=== PATIENT | male | born 2000 | race Caucasian/White ===

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

== ENCOUNTER → 2022-01-01 | Outpatient (CLI) | payer MEDICAID, SELFPAY ==
[2022-01-01 17:26] LABS: Vitamin D,25 Hydroxy 10.5 ng/mL
[2022-01-01 17:33] LABS: AST(SGOT) 20 U/L (15-37); Alanine Aminotransfer ALT/SGPT 30 U/L (16-61); Albumin, Serum 3.9 g/dL (3.2-5.0); Alkaline Phosphatase 117 U/L (45-117); Anion Gap 5 (5-15); BUN 10 mg/dL (7-18); BUN/Creat Ratio 9.6 RATIO (10-20); Calcium,Total 9.4 mg/dL (8.5-10.1); Chloride 98 mmol/L (98-107); Cholesterol 139 mg/dL (200); Creatinine, Serum 1.04 mg/dL (0.70-1.30); EST Glomerular Filtration Rate 97 mL/min (>60); Est Glom Filt Rate - Afr Amer 118 mL/min (>60); Globulin 3.8 g/dL (2.2-4.2); Glucose 389 mg/dL (74-106); High Density Lipoprotein 42 mg/dL; Potassium 3.9 mmol/L (3.5-5.1); Protein, Total 7.7 g/dL (6.4-8.2); Sodium Level 133 mmol/L (136-145); Thyroid Stim Hormone (TSH) 0.87 uIU/mL (0.358-3.74); Triglycerides 64 mg/dL; Very Low Density Lipoprotein 13 mg/dL (5-40)
== END | disposition home or self-care (01) ==
LOC: BIMLAB 14:58
PROVIDERS: PCP Pediatrics; Referring Provider Nurse Practitioner Family; Visit Provider Nurse Practitioner Family
DX: E10.65 Type 1 diabetes mellitus with hyperglycemia (principal)
CPT/HCPCS: 36415; 80053; 80061; 82306; 84443

== ENCOUNTER → 2022-07-19 | Outpatient (CLI) | payer MEDICAID, SELFPAY ==
[2022-07-19 13:05] LABS: Vitamin D,25 Hydroxy 22.8 ng/mL
[2022-07-19 13:34] LABS: Microalbumin,Random Urine 85.5 mg/L (NO RANGE EST.); Microalbumin:Creatinine Ratio 21.1 mg/g CRE (<30 mg/g CRE)
[2022-07-19 13:37] LABS: AST(SGOT) 15 U/L (15-37); Alanine Aminotransfer ALT/SGPT 17 U/L (16-61); Albumin, Serum 3.8 g/dL (3.2-5.0); Alkaline Phosphatase 82 U/L (45-117); Anion Gap 6 (5-15); BUN 10 mg/dL (7-18); BUN/Creat Ratio 11.3 RATIO (10-20); Calcium,Total 9.7 mg/dL (8.5-10.1); Chloride 103 mmol/L (98-107); Creatinine, Serum 0.88 mg/dL (0.70-1.30); EST Glomerular Filtration Rate 117 mL/min (>60); Est Glom Filt Rate - Afr Amer 142 mL/min (>60); Globulin 3.9 g/dL (2.2-4.2); Glucose 121 mg/dL (74-106); Potassium 3.8 mmol/L (3.5-5.1); Protein, Total 7.7 g/dL (6.4-8.2); Sodium Level 139 mmol/L (136-145)
== END | disposition home or self-care (01) ==
LOC: LAB 11:46
PROVIDERS: PCP Pediatrics; Visit Provider Nurse Practitioner Family
DX: E10.9 Type 1 diabetes mellitus without complications (principal); E55.9 Vitamin D deficiency, unspecified
CPT/HCPCS: 36415; 80053; 82043; 82306; 82570

== ENCOUNTER 2022-11-07 14:30 | Emergency (ER) | payer MEDICAID, SELFPAY ==
[2022-11-07 14:30] VITALS: BP 126/80; PULSE 91; RESP 18; TEMP 36.1; O2SAT 100; BMI 46.5
--- NOTE | 2022-11-07 14:42 | EDS_ITS ---
HPI HPI - GI History of Present Illness Chief Complaint: Nausea/Vomiting Informant: patient Abdominal Pain/Flank Pain Onset: Today Context: Sudden Onset Timing: Continuous Quality: Aching Location: Diffuse Worsened by: Nothing Relieved by: Nothing Nausea/Vomiting/Emesis GI Symptom: Positive for Nausea and Vomiting Onset: Today Quality: Positive for Nonbilious; Negative for Blood streaks, Coffee ground or Hematemesis Diarrhea/Melena/Hematochezia GI Symptom: Negative for Diarrhea, Melena or Hematochezia Associated Symptoms Associated Symptoms: Negative for Dysuria, Frequency or Hematuria Narrative Narrative: Patient presents with nausea, vomiting, and abdominal pain that began today. Patient states she has been feeling achy and not well over the last couple days. Patient states she has been around family members with [facility] Patient is a diabetic and checked his blood sugar this morning. Patient states it was normal this morning. Patient states he is unable to take any food down but is able to keep some liquids down. Patient denies any diarrhea, melena, or hematochezia. Patient denies any hematemesis or coffee- ground emesis. Patient denies any dysuria, frequency, or hematuria. [facility] Medical History ADHD Diabetes Home Medications methylphenidate HCl 54 mg tablet,extended release 24 hr (Concerta) 54 mg PO DAILY depression 06/07/17 [History Last Taken 2 Days Ago ~02/20/21] blood sugar diagnostic #10 ea 05/04/21 [History Last Taken Unknown] pen needle, diabetic 32 gauge x 5/32 (BD Ultra-Fine Peace Pen Needle) #120 ea 05/04/21 [Rx Last Taken Unknown] OneTouch Verio test strips (blood sugar diagnostic) #120 ea 11/15/21 [Rx Last Taken Unknown] blood-glucose meter (OneTouch Verio Meter) #1 ea 11/15/21 [Rx Last Taken Unknown] naproxen 250 mg tablet 250 mg PO BID PRN Pain 11/15/21 [History Last Taken Unknown] cholecalciferol (vitamin D3) 1,250 mcg (50,000 unit) capsule 1,250 mcg PO QWEEK #24 caps 01/03/22 [Rx Last Taken Unknown] flash glucose scanning reader ([employer] Marj 2 [place]) #1 ea 06/11/22 [Rx Last Taken Unknown] insulin lispro 100 unit/mL subcutaneous pen See Rx Instructions subcut TID #15 mL 07/19/22 [Rx Last Taken Unknown] lisinopril 10 mg tablet 10 mg PO DAILY #90 tabs 07/19/22 [Rx Last Taken Unknown] flash glucose sensor (FreeStyle Marj 2 Sensor kit) #2 ea 09/05/22 [Rx Last Taken Unknown] insulin glargine 100 unit/mL (3 mL) subcutaneous pen (Lantus Solostar U-100 Insulin) 30 unit subcut DAILY 11/07/22 [History Last Taken Unknown] ondansetron 4 mg disintegrating tablet 4 mg PO Q8H PRN PRN Nausea #10 tabs 11/07/22 [Rx Last Taken Unknown] Allergy/AdvReac Type Severity Reaction Status Date / Time amoxicillin Allergy Intermediate hives Verified 11/07/22 14:32 Family History Brother Heart disease Grandfather Heart disease Mother Liver disease Surgical History no surgical history no surgical history Social History Smoking Status: Current every day smoker tobacco type: e-cigarettes Smokeless tobacco user: other Electronic Cigarette Use: without nicotine substance use type: does not use what type of physical activity do you participate in: walking frequency: daily ROS ROS ED Constitutional Constitutional ED: Denies chills or fever(s) Eyes Eyes: Denies blurry vision or change in vision ENT ENT ED: Denies rhinorrhea or sore throat Cardiovascular Cardiovascular: Reports chest pain; Denies palpitations Respiratory/Chest Respiratory/Chest: Reports cough; Denies dyspnea Gastrointestinal Gastrointestinal: Reports nausea and vomiting Genitourinary Genitourinary ED: Denies dysuria or hematuria Musculoskeletal Musculoskeletal: Reports myalgias; Denies back pain or neck pain Integumentary Denies abscess or rash Neurologic Neurologic: Reports headache(s); Denies weakness Allergic/Immunologic Allergic/Immunologic ED: Denies mouth swelling or urticaria EXAM Physical Exam Const Vital Signs: 11/07/22 14:30 Temperature 96.9 F L Temperature Source Temporal Pulse Rate 91 Respiratory Rate 18 Blood Pressure 126/80 H Blood Pressure Mean 95 Pulse Ox 100 Oxygen Delivery Method Room Air Positive well nourished and well developed General Appearance ED: well developed HEENT Reports moist mucous membranes Neck supple and no JVD Resp normal respiratory effort and clear to auscultation bilaterally Cardio regular rate, regular rhythm and no murmurs GI normal to inspection, nondistended, normoactive bowel sounds Palpation: soft and tender epigastric, LLQ, RLQ, LUQ, RUQ, periumbilical and suprapubic; Negative for guarding or rebound tenderness present Extremity normal to inspection General Extremety ED: Negative for edema or tenderness General Extremity: Negative for edema Neuro oriented x3, CN's II-XII intact bilaterally and no sensory deficits noted Sensorium / Orientation: alert Motor Exam: strength 5/5 throughout Psych mental status grossly normal Skin no rashes or lesions noted MDM MDM MDM Narrative Medical decision making narrative: Differential diagnosis includes diabetic ketoacidosis, gastroenteritis, dehydration, electrolyte abnormality, gastritis, pancreatitis, influenza, and COVID. CBC will be obtained to assess for leukocytosis and anemia. Comprehensive metabolic profile will be obtained to assess for electrolyte abnormality, renal function, and hepatic function. Lipase will be obtained to assess for pancreatitis. Urinalysis will be obtained to assess for urinary tract infection and glucosuria. Lab Data Attestation: I reviewed the patient's lab results. Lab results narrative: BC was reviewed and was essentially within normal limits. Comprehensive metabolic profile was reviewed and showed a glucose of 255 but was otherwise within normal limits. Anion gap was normal. Lipase was reviewed and was normal. COVID-19 rapid antigen was reviewed and was negative. Influenza A and influenza B rapid antigens were reviewed and were negative. Urinalysis was reviewed. There is no evidence of urinary tract infection. There is mild glucosuria at 100. Urine ketones were 50. Labs: Laboratory Results - last 24 hr 11/07/22 11/07/22 11/07/22 14:39 15:00 15:00 WBC 9.4 RBC 5.94 Hgb 16.7 H Hct 48.5 MCV 81.6 MCH 28.1 MCHC 34.4 RDW Std Deviation 34.8 L RDW Coeff of Shital 11.7 Plt Count 208 MPV 10.8 Immature Gran % (Auto) 0.200 Neut % (Auto) 78.6 H Lymph % (Auto) 11.8 L [place] % (Auto) 7.9 Eos % (Auto) 1.2 Baso % (Auto) 0.3 Absolute Neuts (auto) 7.4 Absolute Lymphs (auto) 1.10 Nucleated RBC % 0 Sodium 136 Potassium 4.4 Chloride 99 Carbon Dioxide 29.0 Anion Gap 8 BUN 16 Creatinine 1.06 Estim Creat Clear Calc 103.93 Est GFR (MDRD) Af Amer 114 Est GFR (MDRD) Non-Af 94 BUN/Creatinine Ratio 15.1 Glucose 255 H Calcium 9.2 Total Bilirubin 1.10 H AST 17 ALT 22 Alkaline Phosphatase 83 Total Protein 7.7 Albumin 3.7 Globulin 4.0 Albumin/Globulin Ratio 0.9 Lipase 37 L Urine Color Urine Clarity Urine pH Ur Specific [place] Urine Protein Urine Glucose (UA) Urine Ketones Urine Occult Blood Urine Nitrite Urine Bilirubin Urine Urobilinogen Ur Leukocyte Esterase Urine RBC Urine WBC Ur Squamous Epith Cells Urine Bacteria Urine Mucus POC Glucose 245 H 11/07/22 15:07 WBC RBC Hgb Hct MCV MCH MCHC RDW Std Deviation RDW Coeff of Shital Plt Count MPV Immature Gran % (Auto) Neut % (Auto) Lymph % (Auto) [place] % (Auto) Eos % (Auto) Baso % (Auto) Absolute Neuts (auto) Absolute Lymphs (auto) Nucleated RBC % Sodium Potassium Chloride Carbon Dioxide Anion Gap BUN Creatinine Estim Creat Clear Calc Est GFR (MDRD) Af Amer Est GFR (MDRD) Non-Af BUN/Creatinine Ratio Glucose Calcium Total Bilirubin AST ALT Alkaline Phosphatase Total Protein Albumin Globulin Albumin/Globulin Ratio Lipase Urine Color Yellow Urine Clarity Sl. Cloudy Urine pH 5.0 Ur Specific [place] 1.025 Urine Protein 30 H Urine Glucose (UA) 100 H Urine Ketones 50 H Urine Occult Blood Negative Urine Nitrite Negative Urine Bilirubin 1 H Urine Urobilinogen 1 H Ur Leukocyte Esterase 25 H Urine RBC 0 SEEN Urine WBC 0-5 SEEN Ur Squamous Epith Cells 0-5 SEEN Urine Bacteria 1+ Urine Mucus 0 SEEN POC Glucose Differential Diagnosis Abdominal Pain: Appendicitis Reason(s) appendicitis less likely: Positive for clinical exam does not supportclinical exam does not support, Cholecystitis Reason(s) Cholecystitis less likely: clinical exam does not support, Pancreatitis Reason(s) Pancreatitis less likely: NL lab values, Bowel obstruction Reason(s) bowel obstruction less likely: bowel sounds present on exam and UTI Reason(s) UTI less likely: clinical exam does not support, no evidence of infection on urinalysis and no symptoms of acute infection Additional Tests and Interventions Additional Tests or Interventions: Initial fingerstick blood sugar was obtained and was mildly elevated at 245. Treatment and Re-Evaluation :: Patient was given IV fluids and Zofran. Patient is feeling better on reevaluation. Patient was advised of his findings. Patient was given a prescription for Zofran. Patient was instructed to start with a liquid diet and advance as tolerated. Patient was instructed to follow-up with his primary care physician in 5 to 7 days. Patient was informed to return if worse in any way. Patient understood and was agreeable with the plan. All questions were ans wered. Discharge Plan Triage Chief Complaint: Nausea/Vomiting ED Provider: Aki King Dx/Rx/DC Orders Clinical Impression: Nausea and vomiting, Diabetes mellitus type 1 Instructions: ED Vomiting (Adult) Prescriptions: New ondansetron [ondansetron] 4 mg tablet,disintegrating 4 mg PO Q8H PRN PRN (Reason: Nausea) Qty: 10 0RF No Action (DME) OneTouch Verio test strips Strip See Rx Instructions .ROUTE .MEDSUPPLY Qty: 10 Rx Instructions: As directed (DME) pen needle, diabetic [BD Ultra-Fine Peace Pen Needle] 32 gauge x 5/32 needle See Rx Instructions .ROUTE .MEDSUPPLY Qty: 120 4RF Rx Instructions: 4 times daily naproxen 250 mg tablet 250 mg PO BID PRN (Reason: Pain) (DME) blood-glucose meter [OneTouch Verio Meter] [facility] See Rx Instructions .ROUTE .MEDSUPPLY Qty: 1 0RF Rx Instructions: As directed (DME) OneTouch Verio test strips Strip See Rx Instructions .ROUTE .MEDSUPPLY Qty: 120 8RF Rx Instructions: 4x/day insulin lispro 100 unit/mL insulin pen See Rx Instructions subcut TID MDD 75 units Qty: 15 4RF Rx Instructions: 1 unit for 4 g carbs and 1 unit for 50 pt over 100 subcut three times a day; lisinopril 10 mg tablet 10 mg PO DAILY Qty: 90 3RF methylphenidate HCl [Concerta] 54 MG tablet extended release 24hr 54 mg PO DAILY insulin glargine [Lantus Solostar U-100 Insulin] 100 unit/mL (3 mL) insulin pen 30 unit subcut DAILY cholecalciferol (vitamin D3) 1,250 mcg (50,000 unit) capsule 1,250 mcg PO QWEEK Qty: 24 0RF (DME) FreeStyle Marj 2 [place] Misc See Rx Instructions .Route Qty: 1 0RF Rx Instructions: As directed (DME) FreeStyle Marj 2 Sensor Kit See Rx Instructions .ROUTE .MEDSUPPLY Qty: 2 5RF Rx Instructions: As directed Stand Alone Forms: ED Work / School Excuse Primary Care Provider: Sapphire Madrigal Referrals: Sapphire Madrigal DO [Primary Care Provider] - 5-7 Days Disposition Disposition: Home, Self Care
[2022-11-07 15:00] LABS: Bedside Glucose 245 mg/dL (74-106)
[2022-11-07 15:11] LABS: Absolute Neutrophil Count 7.4 X10^3/uL (2.0-7.7); Basophil# 0.03 X10^3/uL; Basophil% 0.3 % (0-1); Eosinophil# 0.11 X10^3/uL; Eosinophils% 1.2 % (0-5); Hematocrit 48.5 % (40-54); Hemoglobin 16.7 g/dL (13.0-16.5); Lymphocyte % 11.8 % (19-41); Mean Corp Hgb Conc 34.4 g/dL (32-36); Mean Corpuscular Hgb 28.1 pg (27.0-32.0); Mean Corpuscular Volume 81.6 fL (80-94); Mean Platelet Vol. 10.8 fl (6.2-12.0); Monocyte# 0.74 X10^3/uL; Monocyte% 7.9 % (0-10); NRBC Flagged by Analyzer 0 % (0-5); Neutrophil # 7.36 X10^3/uL (2.7-7.7); Neutrophil % 78.6 % (47-70); Platelet Count 208 K/mm3 (150-450); RBC Distribution Width CV 11.7 % (11.6-14.6); RBC Distribution Width SD 34.8 fl (35.1-43.9); Red Blood Count 5.94 M/mm3 (4.6-6.2); White Blood Count 9.4 K/mm3 (4.4-11.0)
[2022-11-07] MEDS: Ondansetron 4 MG/2 ML Vial IV (15:12)
[2022-11-07] MEDS: 0.9% Normal Saline 1,000 ML 1000 ML IV (15:12)
[2022-11-07 15:13] LABS: Color, Urine Yellow (Yellow); Glucose, Dipstick 100 mg/dl (Normal); Ketone-Dipstick 50 mg/dl (Negative); Leukocyte Esterase-Dipstick 25 /ul (Negative); Mucous, Urine 0 SEEN /hpf (<or=2+); Nitrite-Dipstick Negative (Negative); Occult Blood-Urine Negative /ul (Negative); Protein-Dipstick 30 mg/dl (Negative); Red Blood Cells-Urine 0 SEEN /hpf (0-5); Specific Gravity, Urine 1.025 (1.002-1.030); Urine Clarity Sl. Cloudy (Clear); Urine Urobilinogen 1 mg/dl (Normal)
[2022-11-07 15:17] LABS: Urine Bilirubin Dipstick 1 mg/dL (Negative)
[2022-11-07 15:19] LABS: Bacteria 1+ /hpf (None Seen); Squamous Epithelial Cells - UA 0-5 SEEN /hpf (0-5); White Blood Cells 0-5 SEEN /hpf (0-5)
[2022-11-07 15:26] LABS: ALB/GLOB Ratio 0.9 RATIO (0.9-2.4); AST(SGOT) 17 U/L (15-37); Alanine Aminotransfer ALT/SGPT 22 U/L (16-61); Albumin, Serum 3.7 g/dL (3.2-5.0); Alkaline Phosphatase 83 U/L (45-117); Anion Gap 8 (5-15); BUN 16 mg/dL (7-18); BUN/Creat Ratio 15.1 RATIO (10-20); Calcium,Total 9.2 mg/dL (8.5-10.1); Chloride 99 mmol/L (98-107); Creatinine, Serum 1.06 mg/dL (0.70-1.30); EST Glomerular Filtration Rate 94 mL/min (>60); Est Glom Filt Rate - Afr Amer 114 mL/min (>60); Estimated Creatinine Clearance 103.93 ml/min; Glucose 255 mg/dL (74-106); Lipase 37 U/L (73-393); Potassium 4.4 mmol/L (3.5-5.1); Protein, Total 7.7 g/dL (6.4-8.2); Sodium Level 136 mmol/L (136-145)
[2022-11-07 16:16] VITALS: PULSE 63
== END 2022-11-07 16:17 | disposition home or self-care (01) ==
PROVIDERS: Emergency Provider Emergency Medicine; PCP Pediatrics; Visit Provider Emergency Medicine
DX: R11.2 Nausea with vomiting, unspecified (principal); E10.9 Type 1 diabetes mellitus without complications; Z79.4 Long term (current) use of insulin; F17.290 Nicotine dependence, other tobacco product, uncomplicated; Z20.822 Contact with and (suspected) exposure to COVID-19; R10.9 Unspecified abdominal pain
CPT/HCPCS: 80053; 81001; 82962; 83690; 85025; 87428; 96361; 96374; 99284; J7030; A4216; J2405

== ENCOUNTER 2023-05-23 00:06 | Emergency (ER) | payer MEDICAID, SELFPAY ==
[2023-05-23 00:06] VITALS: BP 113/65; PULSE 85; RESP 18; TEMP 36.7; O2SAT 99; BMI 21.9
--- NOTE | 2023-05-23 00:17 | EKG12_ITS ---
Test Reason : DYSRHYTHMIA Blood Pressure : / mmHG Vent. Rate : 071 BPM Atrial Rate : 071 BPM P-R Int : 114 ms QRS Dur : 078 ms QT Int : 372 ms P-R-T Axes : 067 056 056 degrees QTc Int : 404 ms Normal sinus rhythm Normal ECG Confirmed by NOLAN WOODWARD, TAMMY ([id number]), manager editorial VIKTORIYA ATKINSON ([id number]) on 05/28/2023 11:15:12 AM Referred By: PL Confirmed By:ERNESTO FRANCISCO MD
--- NOTE | 2023-05-23 00:17 | RAD_ITS ---
EXAM: XR CHEST, 1 VIEW CLINICAL INDICATION: chest pain TECHNIQUE: Frontal view of the chest. COMPARISON: 10/03/2021 FINDINGS: LUNGS AND PLEURAL SPACES: Unremarkable. No consolidation or edema. No pneumothorax. No effusion. HEART: Unremarkable. Cardiac silhouette not enlarged. MEDIASTINUM: Central airways and mediastinal contour are unremarkable. BONES/JOINTS: Unremarkable. SOFT TISSUES: Unremarkable. RAD/Chest 1 View (Portable) IMPRESSION: No radiographic evidence of acute cardiopulmonary disease. Electronically Signed: Jacky Stearns MD at 0:57 EDT ,
--- NOTE | 2023-05-23 00:18 | EDS_ITS ---
HPI History of Present Illness Chief Complaint: Palpitations Informant: patient Narrative Narrative: The palpitations at home. Patient states he was just sitting watching a show. His heart started to pound. It sounds like it was fast. He does not know if it was regular or irregular. He did have a little discomfort when it was pounding. It lasted for maybe a minute and then went away. He was never short of breath. He feels back to normal now. He has had things like this before but he did not have the pain with it. And it has been a long time. He vapes. He has diabetes. No actual blood pressure. He is on lisinopril as renal protection with the diabetes. No high cholesterol. No family history of heart disease. No recent travel surgery immobilization personal or family history of DVT or PE. His blood sugars have been running anywhere from 65 up to about a high of 360 in the last 24 hours. I did review his freestyle marj continuous glucose monitor charting. He has no leg pain or swelling. His symptoms are resolved. [facility] Medical History ADHD CKD stage 2 due to type 1 diabetes mellitus Diabetes Home Medications methylphenidate HCl 54 mg tablet,extended release 24 hr (Concerta) 54 mg PO DAILY depression 06/07/17 [History Last Taken 2 Days Ago ~02/20/21] blood sugar diagnostic #10 ea 05/04/21 [History Last Taken Unknown] OneTouch Verio test strips (blood sugar diagnostic) #120 ea 11/15/21 [Rx Last Taken Unknown] blood-glucose meter (OneTouch Verio Meter) #1 ea 11/15/21 [Rx Last Taken Unknown] naproxen 250 mg tablet 250 mg PO BID PRN Pain 11/15/21 [History Last Taken Unknown] cholecalciferol (vitamin D3) 1,250 mcg (50,000 unit) capsule 1,250 mcg PO QWEEK #24 caps 01/03/22 [Rx Last Taken Unknown] flash glucose scanning reader (FreeStyle Marj 2 [place]) #1 ea 06/11/22 [Rx Last Taken Unknown] ondansetron 4 mg disintegrating tablet 4 mg PO Q8H PRN PRN Nausea #10 tabs 11/07/22 [Rx Last Taken Unknown] flash glucose sensor (FreeStyle Marj 2 Sensor kit) #2 ea 03/25/23 [Rx Last Taken Unknown] insulin glargine 100 unit/mL (3 mL) subcutaneous pen (Lantus Solostar U-100 Insulin) 30 unit (0.3 mL) subcut DAILY #15 mL 03/25/23 [Rx Last Taken Unknown] insulin lispro 100 unit/mL subcutaneous pen See Rx Instructions subcut TID #15 mL 03/25/23 [Rx Last Taken Unknown] lisinopril 10 mg tablet 10 mg PO DAILY #90 tabs 03/25/23 [Rx Last Taken Unknown] pen needle, diabetic 32 gauge x 5/32 (BD Ultra-Fine Peace Pen Needle) #120 ea 03/25/23 [Rx Last Taken Unknown] Allergy/AdvReac Type Severity Reaction Status Date / Time amoxicillin Allergy Intermediate hives Verified 05/23/23 00:08 Family History Brother Heart disease Grandfather Heart disease Mother Liver disease Social History Smoking Status: Current every day smoker tobacco type: e-cigarettes Smokeless tobacco user: other Electronic Cigarette Use: without nicotine substance use type: does not use what type of physical activity do you participate in: walking frequency: daily ROS ROS ED ROS Narrative A complete review of systems was performed and is negative except as documented in the history of present illness. Some specific details below. Constitutional: No recent fevers or chills. Days. He felt well before and after this event. EYE: No discharge, visual complaints, or pain. ENT: No difficulty swallowing. No swelling. No pain. No reflux symptoms. CV: See history of present illness. Respiratory: Coughing or trouble breathing. GI: No abdominal pain. No nausea vomiting diarrhea. No blood in stool. : No frequency dysuria or hematuria. Musculoskeletal: No recent trauma. No pains. No swelling. Skin: No rash. Nondiaphoretic. Neuro: No weakness or numbness. Endocrine: No polyuria or polydipsia. EXAM Physical Exam Narrative Exam Narrative: CONSTITUTIONAL: Patient is nontoxic in appearance. The patient looks comfortable. Work of breathing looks normal. HEENT: No notable trauma. Mucous membranes may be minimally dry. No sinus tenderness. No indication of pain with swallowing. EYES: No conjunctival injection. No proptosis. NECK:No JVD. No stridor. CARDIOVASCULAR: Regular rate. Regular rhythm. No notable murmur. No JVD. Pulses are equal x4. There is no muffled heart tones. RESPIRATORY: No respiratory distress. Breathing is unlabored. No wheezes. No rhonchi. No rales. No pain with a deep breath. No chest wall tenderness. Rations are normal at 99% on room air showing no hypoxia. GASTROINTESTINAL: Not distended. Bowel sounds are normal. No tenderness. No guarding. No rebound. No palpable mass. No bruit is heard. GENITOURINARY: No tenderness over the bladder. No CVA tenderness. MUSCULOSKELETAL: Atraumatic. No peripheral edema. No cord. No tenderness along the deep venous system. No asymmetry. No distended veins. NEUROLOGICAL: Patient is alert and appropriate. No focal deficit noted. SKIN: No noted rashes. No diaphoresis. PSYCHIATRIC: Patient is calm. Mood is appropriate. Const Vital Signs: 05/23/23 00:06 05/23/23 00:25 Temperature 98.0 F Temperature Source Temporal Pulse Rate 85 Respiratory Rate 18 Blood Pressure 113/65 Blood Pressure Mean 81 Pulse Ox 99 Oxygen Delivery Method Room Air Room Air MDM MDM MDM Narrative Medical decision making narrative: My independent interpretation of the patient's single AP view but to image x-ray shows no sign of pneumothorax. No infiltrate. Cardiac silhouette is normal. This is overall normal chest x-ray. Final reading is pending. Patient CBC shows a mild elevation of white count at 13.9. Hemoglobin platelets are normal. Graph patient's electrolytes showed no marked abnormality but his glucose is a bit up at 270. He ranges from lows at 50 and 60 up to about 400 normally. His last A1c was about 9. So this was within his normal range. Patient's magnesium is normal. Patient's troponin is less than the lowest measurable at less than 3. Since the patient has had symptoms for in excess of 3 hours, he is not high risk cardiac. He has a low troponin we will get him home. Is a heart score of 1. Ryan that the patient may end up getting cardiac/Holter monitor if he is having recurrent symptoms. We discussed reasons to return. Lab Data Attestation: I reviewed the patient's lab results. Labs: Laboratory Results - last 24 hr 05/23/23 00:20 WBC 13.9 H RBC 5.38 Hgb 15.1 Hct 43.8 MCV 81.4 MCH 28.1 MCHC 34.5 RDW Std Deviation 35.3 RDW Coeff of Shital 11.9 Plt Count 214 MPV 11.0 Immature Gran % (Auto) 0.300 Neut % (Auto) 81.9 H Lymph % (Auto) 8.8 L [place] % (Auto) 8.5 Eos % (Auto) 0.2 Baso % (Auto) 0.3 Absolute Neuts (auto) 11.4 H Absolute Lymphs (auto) 1.22 Nucleated RBC % 0 Sodium 135 L Potassium 3.9 Chloride 100 Carbon Dioxide 31.0 Anion Gap 4 L BUN 13 Creatinine 0.93 Estim Creat Clear Calc 114.21 Est GFR (MDRD) Af Amer 132 Est GFR (MDRD) Non-Af 109 BUN/Creatinine Ratio 13.9 Glucose 271 H Calcium 9.5 Magnesium 1.7 Troponin I High Sens < 3 L EKG Initial EKG: Comments: My independent interpretation the patient's EKG shows a normal sinus rhythm with rate of 71. No ectopy. No acute ST elevation or depression. NV interval, QRS duration and QTc are normal. The EKG is similar to 1 from 10 July 2021. Discharge Plan Triage Chief Complaint: Palpitations ED Provider: Lico Deshpande Dx/Rx/DC Orders Clinical Impression: Heart palpitations, Chest pain Instructions: ED Chest Pain, Uncertain Cause, ED Palpitations Prescriptions: No Action (DME) OneTouch Verio test strips Strip See Rx Instructions .ROUTE .MEDSUPPLY Qty: 10 Rx Instructions: As directed naproxen 250 mg tablet 250 mg PO BID PRN (Reason: Pain) (DME) blood-glucose meter [OneTouch Verio Meter] [facility] [place] Rx Instructions .ROUTE .MEDSUPPLY Qty: 1 0RF Rx Instructions: As directed (DME) OneTouch Verio test strips Strip See Rx Instructions .ROUTE .MEDSUPPLY Qty: 120 8RF Rx Instructions: 4x/day lisinopril 10 mg tablet 10 mg PO DAILY Qty: 90 3RF insulin glargine [Lantus Solostar U-100 Insulin] 100 unit/mL (3 mL) insulin pen 30 unit subcut DAILY Qty: 15 6RF insulin lispro 100 unit/mL insulin pen See Rx Instructions subcut TID MDD 60 Qty: 15 4RF Rx Instructions: 1 unit for 4 g carbs and 1 unit for 50 pt over 100 subcut three times a day; (DME) FreeStyle Marj 2 Sensor Kit See Rx Instructions .ROUTE .MEDSUPPLY Qty: 2 5RF Rx Instructions: 1 sensor q 14 days (DME) pen needle, diabetic [BD Ultra-Fine Peace Pen Needle] 32 gauge x 5/32 needle See Rx Instructions .ROUTE .MEDSUPPLY Qty: 120 4RF Rx Instructions: 4 times daily methylphenidate HCl [Concerta] 54 MG tablet extended release 24hr 54 mg PO DAILY ondansetron [ondansetron] 4 mg tablet,disintegrating 4 mg PO Q8H PRN PRN (Reason: Nausea) Qty: 10 0RF cholecalciferol (vitamin D3) 1,250 mcg (50,000 unit) capsule 1,250 mcg PO QWEEK Qty: 24 0RF (DME) FreeStyle Marj 2 [place] Misc See Rx Instructions .Route Qty: 1 0RF Rx Instructions: As directed Primary Care Provider: Sapphire Madrigal Referrals: Sapphire Madrigal DO [Primary Care Provider] - 3-5 Days Disposition Disposition: Home, Self Care
[2023-05-23] MEDS: 0.9% Normal Saline (1000mL) 1,000 ML 1000 ML IV (00:23)
[2023-05-23 00:24] LABS: Absolute Lymphocyte Count 1.22 X10^3/uL (0.83-4.51); Absolute Neutrophil Count 11.4 X10^3/uL (2.0-7.7); Basophil# 0.04 X10^3/uL; Basophil% 0.3 % (0-1); Eosinophil# 0.03 X10^3/uL; Eosinophils% 0.2 % (0-5); Hematocrit 43.8 % (40-54); Hemoglobin 15.1 g/dL (13.0-16.5); Lymphocyte # 1.22 X10^3/ul (0.83-4.51); Lymphocyte % 8.8 % (19-41); Mean Corp Hgb Conc 34.5 g/dL (32-36); Mean Corpuscular Hgb 28.1 pg (27.0-32.0); Mean Corpuscular Volume 81.4 fL (80-94); Monocyte# 1.18 X10^3/uL; Monocyte% 8.5 % (0-10); NRBC Flagged by Analyzer 0 % (0-5); Neutrophil # 11.43 X10^3/uL (2.7-7.7); Neutrophil % 81.9 % (47-70); Platelet Count 214 K/mm3 (150-450); RBC Distribution Width CV 11.9 % (11.6-14.6); RBC Distribution Width SD 35.3 fl (35.1-43.9); Red Blood Count 5.38 M/mm3 (4.6-6.2); White Blood Count 13.9 K/mm3 (4.4-11.0)
[2023-05-23 00:43] LABS: Anion Gap 4 (5-15); BUN 13 mg/dL (7-18); BUN/Creat Ratio 13.9 RATIO (10-20); Calcium,Total 9.5 mg/dL (8.5-10.1); Chloride 100 mmol/L (98-107); Creatinine, Serum 0.93 mg/dL (0.70-1.30); EST Glomerular Filtration Rate 109 mL/min (>60); Est Glom Filt Rate - Afr Amer 132 mL/min (>60); Estimated Creatinine Clearance 114.21 ml/min; Glucose 271 mg/dL (74-106); Magnesium 1.7 mg/dL (1.6-2.6); Potassium 3.9 mmol/L (3.5-5.1); Sodium Level 135 mmol/L (136-145); Troponin-I HS < 3 pg/mL (3.0-78.0)
[2023-05-23 01:07] VITALS: PULSE 79; RESP 18; O2SAT 96
== END 2023-05-23 01:08 | disposition home or self-care (01) ==
PROVIDERS: Emergency Provider Emergency Medicine; PCP Pediatrics; Visit Provider Emergency Medicine
DX: R00.2 Palpitations (principal); E10.22 Type 1 diabetes mellitus with diabetic chronic kidney disease; E10.65 Type 1 diabetes mellitus with hyperglycemia; Z79.4 Long term (current) use of insulin; R07.9 Chest pain, unspecified; N18.2 Chronic kidney disease, stage 2 (mild); F17.290 Nicotine dependence, other tobacco product, uncomplicated; Z79.899 Other long term (current) drug therapy
CPT/HCPCS: 71045; 80048; 83735; 84484; 85025; 93005; 96360; 99283; J7030; A4216

== ENCOUNTER 2023-08-15 13:08 | Emergency (ER) | payer MEDICAID, SELFPAY ==
[2023-08-15 13:09] VITALS: BP 121/83; PULSE 101; RESP 18; TEMP 36.8; O2SAT 99; BMI 23.3
--- NOTE | 2023-08-15 13:43 | ED.VIS.GI ---
HPI HPI - GI History of Present Illness Chief Complaint: Abd Pain Detail of Chief Complaint: Nausea and vomiting today. Informant: patient Abdominal Pain/Flank Pain Onset: Today and Hours Context: Gradual Onset Timing: Continuous Quality: Cramping Location: Diffuse Current Severity: Mild Maximum Severity: Mild Worsened by: Nothing Relieved by: Nothing Nausea/Vomiting/Emesis GI Symptom: Positive for Vomiting Onset: Today Severity: Mild Diarrhea/Melena/Hematochezia GI Symptom: Negative for Diarrhea, Melena or Hematochezia Associated Symptoms Associated Symptoms: Negative for Dysuria, Frequency, Hematuria or Urgency Narrative Narrative: 23-year-old diabetic male sitting still 1 yesterday today at 3 AM started with nausea and vomiting. No diarrhea. No fever. No abdominal trauma. No prior abdominal surgery. States his blood sugars today have been around 157. He is a chronic monitor on. Denies any dysuria. Prior similar symptoms: Yes Recent Illness/Hospitalization: No PFSH PFSH Medical History ADHD CKD stage 2 due to type 1 diabetes mellitus Diabetes Home Medications methylphenidate HCl 54 mg tablet,extended release 24 hr (Concerta) 54 mg PO DAILY depression 06/07/17 [History Last Taken 2 Days Ago ~02/20/21] blood sugar diagnostic #10 ea 05/04/21 [History Last Taken Unknown] OneTouch Verio test strips (blood sugar diagnostic) #120 ea 11/15/21 [Rx Last Taken Unknown] blood-glucose meter (OneTouch Verio Meter) #1 ea 11/15/21 [Rx Last Taken Unknown] naproxen 250 mg tablet 250 mg PO BID PRN Pain 11/15/21 [History Last Taken Unknown] cholecalciferol (vitamin D3) 1,250 mcg (50,000 unit) capsule 1,250 mcg PO QWEEK #24 caps 01/03/22 [Rx Last Taken Unknown] flash glucose scanning reader ([facility] Marj 2 [place]) #1 ea 06/11/22 [Rx Last Taken Unknown] ondansetron 4 mg disintegrating tablet 4 mg PO Q8H PRN PRN Nausea #10 tabs 11/07/22 [Rx Last Taken Unknown] insulin glargine 100 unit/mL (3 mL) subcutaneous pen (Lantus Solostar U-100 Insulin) 30 unit (0.3 mL) subcut DAILY #15 mL 03/25/23 [Rx Last Taken Unknown] insulin lispro 100 unit/mL subcutaneous pen See Rx Instructions subcut TID #15 mL 03/25/23 [Rx Last Taken Unknown] lisinopril 10 mg tablet 10 mg PO DAILY #90 tabs 03/25/23 [Rx Last Taken Unknown] pen needle, diabetic 32 gauge x 5/32 (BD Ultra-Fine Peace Pen Needle) #120 ea 03/25/23 [Rx Last Taken Unknown] flash glucose sensor (FreeStyle Marj 2 Sensor kit) #2 ea 08/02/23 [Rx Last Taken Unknown] Allergy/AdvReac Type Severity Reaction Status Date / Time amoxicillin Allergy Intermediate hives Verified 05/23/23 00:08 Family History Brother Heart disease Grandfather Heart disease Mother Liver disease Social History Smoking Status: Current every day smoker tobacco type: e-cigarettes Smokeless tobacco user: other Electronic Cigarette Use: without nicotine substance use type: does not use what type of physical activity do you participate in: walking frequency: daily ROS ROS ED ROS Narrative Vomiting. Abdominal cramping. Review of Systems ROS Unobtainable: Denies due to encephalopathy Constitutional Constitutional ED: Denies chills or fever(s) ENT ENT ED: Denies ear pain Cardiovascular Cardiovascular: Denies chest pain Respiratory/Chest Respiratory/Chest: Denies cough or dyspnea Gastrointestinal Gastrointestinal: Reports abdominal pain, nausea and vomiting; Denies constipation, diarrhea or melena Genitourinary Genitourinary ED: Denies dysuria or hematuria Musculoskeletal Musculoskeletal: Denies arthralgias, back pain, myalgias or neck pain Integumentary Denies abscess, Abrasions or rash Neurologic Neurologic: Denies headache(s) Psychiatric Psychiatric: Denies anxiety or depression Endocrine Endocrinology: Denies polydipsia or polyphagia Hematologic/Lymphatic Hematologic/Lymphatic: Denies easy bleeding Allergic/Immunologic Allergic/Immunologic ED: Denies mouth swelling or tongue swelling EXAM Physical Exam Narrative Exam Narrative: 23-year-old male no acute distress vital signs stable afebrile. H EENT exam unremarkable and mild dry mucous membranes. Neck nontender no lymphadenopathy. No meningismus. Lungs clear to auscultation bilaterally. Heart regular rhythm rate about 100 no murmur. Abdomen soft nondistended normal bowel sounds no peritoneal signs. No localizing tenderness. Both the right upper right lower quadrant unremarkable. No hernia or mass. No distention. Soft with normal bowel sounds. Moving all 4 extremities. Nontender no edema. Back nontender. Neurologically is awake alert with no focal motor deficits. Const Vital Signs: 08/15/23 13:09 Temperature 98.3 F Temperature Source Temporal Pulse Rate 101 H Respiratory Rate 18 Blood Pressure 121/83 H Blood Pressure Mean 95 Pulse Ox 99 Oxygen Delivery Method Room Air Positive well nourished and well developed; Negative for obese, cachectic, contractures or unkempt General Appearance ED: well developed and NAD; Negative for unkempt, cachectic, contractures or pallor Nutritional Appearance: Negative for cachectic or obese HEENT Reports dry mucous membranes; Denies moist mucous membranes normocephalic and atraumatic; Negative for trauma or tenderness Mouth ED: Yes dry mucous membranes Mouth: dry mucous membranes Eyes EOMs intact bilaterally General Eye ED: Negative for pale conjunctiva, scleral icterus or other Neck no lymphadenopathy, supple and no JVD General: Negative for tenderness Carotids: Negative for other Resp normal respiratory effort and clear to auscultation bilaterally Effort and Inspection: Negative for respiratory distress Auscultation: Negative for rales, rhonchi or wheezes Cardio regular rate, regular rhythm, S1 normal heart sound, S2 normal heart sound and no murmurs Rate: Negative for bradycardia or tachycardic Rhythm: Negative for abnormal rhythm GI non-tender, non-distended and no masses Inspection: Negative for abdominal distention Auscultation: normoactive bowel sounds Palpation: soft; Negative for tender, guarding, rigid, hepatomegaly, splenomegaly, hernia, mass, pulsatile mass or rebound tenderness present Back/Spine no CVA tenderness General Back: Negative for CVA tenderness Cervical Spine: Negative for cervical spine tenderness Thoracic Spine / Upper Back: Negative for thoracic spinal tenderness Lumbar Spine / Lower Back: Negative for lumbar spinal tenderness Coccyx: Negative for other Extremity full ROM General Extremety ED: Negative for edema or tenderness General Extremity: Negative for edema Neuro CN's II-XII intact bilaterally and moves all extremities Sensorium / Orientation: alert, oriented to person, oriented to place and oriented to time; Negative for orientation impaired, confused, lethargic or stuporous Motor Exam: strength 5/5 throughout Psych mental status grossly normal and thought process normal Appearance: Negative for unkempt Attitude: No agitated Mood & Affect: Negative for depressed, anxious or tearful Skin no wounds General Skin Exam: Negative for jaundice or pallor Lesions: no lesions Rashes: no rashes Trauma: Negative for abrasion Nails: Negative for discolored MDM MDM MDM Narrative Medical decision making narrative: 23-year-old male appears to have viral syndrome with nausea and vomiting. Abdomen is benign there is no signs of appendicitis or obstruction. No hernia or mass. Abdomen is not tender. I do not think he needs any imaging. He wears a chronic diabetic monitor in his arm his blood sugars been around 157. Be treated with IV fluids and IV Zofran. P.o. fluid challenge. Boni exam patient is doing well at 2:45 PM. Abdomen benign. He is receiving IV fluids. Patient be discharged home. Fluids and rest. Zofran as needed for nausea. Watch his blood sugars. Follow-up as needed. Off work next 2 days. History & Record Review Discussion w/independent historian: Patient Additional record(s) reviewed:: Prior inpatient record, Prior outpatient record, Prior ED visit and Prior labs Discharge Plan Triage Chief Complaint: Abd Pain ED Provider: Fei Thompson Dx/Rx/DC Orders Prescriptions: No Action (DME) OneTouch Verio test strips Strip See Rx Instructions .ROUTE .MEDSUPPLY Qty: 10 Rx Instructions: As directed naproxen 250 mg tablet 250 mg PO BID PRN (Reason: Pain) (DME) blood-glucose [place]OneTouch Verio Meter[place] [facility] [place] Instructions .ROUTE .MEDSUPPLY Qty: 1 0RF Rx Instructions: As directed (DME) OneTouch Verio test strips Strip See Rx Instructions .ROUTE .MEDSUPPLY Qty: 120 8RF Rx Instructions: 4x/day lisinopril 10 mg tablet 10 mg PO DAILY Qty: 90 3RF insulin glargine [Lantus Solostar U-100 Insulin] 100 unit/mL (3 mL) insulin pen 30 unit subcut DAILY Qty: 15 6RF insulin lispro 100 unit/mL insulin pen See Rx Instructions subcut TID MDD 60 Qty: 15 4RF Rx Instructions: 1 unit for 4 g carbs and 1 unit for 50 pt over 100 subcut three times a day; (DME) pen needle, diabetic [BD Ultra-Fine Peace Pen Needle] 32 gauge x 5/32 needle See Rx Instructions .ROUTE .MEDSUPPLY Qty: 120 4RF Rx Instructions: 4 times daily methylphenidate HCl [Concerta] 54 MG tablet extended release 24hr 54 mg PO DAILY ondansetron [ondansetron] 4 mg tablet,disintegrating 4 mg PO Q8H PRN PRN (Reason: Nausea) Qty: 10 0RF cholecalciferol (vitamin D3) 1,250 mcg (50,000 unit) capsule 1,250 mcg PO QWEEK Qty: 24 0RF (DME) FreeStyle Marj 2 [place] Misc See Rx Instructions .Route Qty: 1 0RF Rx Instructions: As directed (DME) FreeStyle Marj 2 Sensor Kit See Rx Instructions .ROUTE .MEDSUPPLY Qty: 2 5RF Rx Instructions: 1 sensor q 14 days Primary Care Provider: Sapphire Madrigal Referrals: Sapphire Madrigal, [Primary Care Provider] -
[2023-08-15] MEDS: Ondansetron 4 MG/2 ML Vial IV (13:54)
[2023-08-15] MEDS: 0.9% Normal Saline (1000mL) 1,000 ML 1000 ML IV (13:54)
== END 2023-08-15 15:08 | disposition home or self-care (01) ==
PROVIDERS: Emergency Provider Emergency Medicine; PCP Pediatrics; Visit Provider Emergency Medicine
DX: R10.31 Right lower quadrant pain (principal); E10.22 Type 1 diabetes mellitus with diabetic chronic kidney disease; Z79.4 Long term (current) use of insulin; R10.11 Right upper quadrant pain; R11.2 Nausea with vomiting, unspecified; N18.2 Chronic kidney disease, stage 2 (mild); F17.210 Nicotine dependence, cigarettes, uncomplicated; F90.9 Attention-deficit hyperactivity disorder, unspecified type; Z79.899 Other long term (current) drug therapy
CPT/HCPCS: 96361; 96374; 99284; J7030; A4216; J2405

== ENCOUNTER 2023-09-29 16:35 | Emergency (ER) | payer MEDICAID, SELFPAY ==
[2023-09-29 16:37] VITALS: BP 137/82; PULSE 77; RESP 18; TEMP 37.1; O2SAT 98; BMI 23.8
--- NOTE | 2023-09-29 17:03 | RAD_ITS ---
EXAM: XR RIGHT FEMUR, 2 VIEWS CLINICAL INDICATION: pain after injection TECHNIQUE: Frontal and lateral views of the right femur. COMPARISON: No relevant prior studies available. FINDINGS: BONES/JOINTS: Unremarkable. No acute fracture. No subluxation. Normal alignment. Preservation of the joint space. No sclerotic or destructive changes observed. SOFT TISSUES: Unremarkable. No soft tissue swelling or gas. No radiopaque foreign body. RAD/Femur Min 2 Views IMPRESSION: Negative right femur x-rays. Electronically Signed: Jacky Greer MD at 17:53 EST ,
--- OUTSIDE RECORDS SUMMARY | 2023-09-29 17:10 | XMS RPT_ITS | CCD ---
Author Name Unknown Address [facility] [address] [place] [id number] Organization [facility] Results Test Name Value Interpretation Reference Range Facil ity Clinical Note 11-04-2020 Note Date & Type Note Facility 11-04-2020 Note Patient Outreach ([facility]) SHEILA TROTTER ([id number]) 02 M Date Time Provider Department 11/04/20 PA CLEMENTS During your visit today, we recorded the following information about you: Allergies As of Date: 11/04/2020 Noted Allergy Reaction AMOXICILLIN 10/21/2019 2 - Rash Date Reviewed: 11/10/2019 Reviewed by: Wilbur ([facility]) Eloisa - Fully Assessed Order(s):SARS-COVID VACCINE 1ST DOSE APPT [[id number]] Order #: [id number] FUTURE Prescriptions as of 11/04/2020 Sig: BLOOD-GLUCOSE METER Use to test BG 10 times daily* PEN NEEDLE, DIABETIC 31 GAUGE* USE DIRECTED UP TO 1 TIME * INSULIN SYRINGE U-100 WITH NE* Use as directed up to 6 times* INSULIN LISPRO (U-100) 100 UN* Inject up to 70 units SQ vipul* METHYLPHENIDATE ER 54 MG TABL* Take 54 mg by mouth. MUCINEX 600 MG TABLET, EXTEND* Take 2 tablets by mouth twice* Patient not taking: Reported on 11/10/2019 BENZONATATE 100 MG CAPSULE Take 1 capsule by mouth three* ALEVE ORAL Take by mouth. AMOXICILLIN 875 MG-POTASSIUM * Take 1 tablet by mouth twice * INSULIN LISPRO (U-100) 100 UN* Inject up to 70 units SQ vipul* METHYLPHENIDATE ER 54 MG TABL* Take 54 mg by mouth once vipul* IBUPROFEN 100 MG/5 ML ORAL VIRK* Give 20 ml (4 teaspoons) ever* ACETAMINOPHEN 160 MG/5 ML ORA* Give 20 mL (4 teaspoons) oral* BASAGLAR KWIKPEN U-100 INSULI* HUMALOG U-100 INSULIN 100 UNI* Problem List As Of Date 11/04/2020 Noted Resolved Type 1 diabetes (HCC) [E10.9] 10/11/2017 Encounter Status:Closed by ZION SWANSONUSER on 11/07/20 [facility] Summary Purpose Family History No Family History Records FoundNo Family History Records Found Advance Directives No Advanced Directives Records FoundNo Advanced Directives Records Found Additional Source Comments (unrecognized sect ion and content) No Status Records FoundNo Status Records Found INFORMATION SOURCE (unrecogn ized section and content) DATE CREATED AUTHOR AUTHOR'S ORGANIZ ATION 10/04/2021 [facility] FOR RECORDS PERTAINING TO PATIENTS WHO ARE OR HAVE BEEN ENROLLED IN A CHEMICAL DEPENDENCY/SUBSTANCEABUSE PROGRAM, SOME INFORMATION MAY BE OMITTED. This clinical summary was aggregated from multiple sources. Caution should be exercised in using it in the provision of clinical care. This summary normalizes information from multiple sources, and as a consequence, information in this document may materially change the coding, format and clinical context of patient data. In addition, data may be omitted in some cases. CLINICAL DECISIONS SHOULD BE BASED ON THE PRIMARY CLINICAL RECORDS. [employer] [facility]. provides no warranty or guarantee of the accuracy or completeness of information in this document.
--- NOTE | 2023-09-29 17:26 | EX.ED.GENINJ ---
HPI History of Present Illness Chief Complaint: Other, Pain/Inj Informant: patient Narrative Narrative: Patient presents after having pain at injection site from insulin. Patient states that he injected insulin to his right thigh on Saturday evening. He states he was tired because he been at work all day. After injecting insulin his thighs had pain in the sides of his abdomen and sometimes in 1 spot over the xiphoid. And he has soreness in the right thigh. He does not know if they are connected. He is not really having symptoms other than thigh soreness now. He is eating and drinking normally. I looked over his [employer] Marj CGM device and his blood sugars have actually been pretty well-controlled over the last 4 days or so. He had 1 peak at 350 but everything else is much lower. He is normally in the 150 range. He states he does not feel sick. No lightheadedness. No syncope or presyncope. No recent travel surgery immobilization. He denies prior PEs. [facility] Medical History ADHD CKD stage 2 due to type 1 diabetes mellitus Diabetes Home Medications methylphenidate HCl 54 mg tablet,extended release 24 hr (Concerta) 54 mg PO DAILY depression 06/07/17 [History Last Taken 2 Days Ago ~02/20/21] blood sugar diagnostic #10 ea 05/04/21 [History Last Taken Unknown] OneTouch Verio test strips (blood sugar diagnostic) #120 ea 11/15/21 [Rx Last Taken Unknown] blood-glucose meter (OneTouch Verio Meter) #1 ea 11/15/21 [Rx Last Taken Unknown] naproxen 250 mg tablet 250 mg PO BID PRN Pain 11/15/21 [History Last Taken Unknown] cholecalciferol (vitamin D3) 1,250 mcg (50,000 unit) capsule 1,250 mcg PO QWEEK #24 caps 01/03/22 [Rx Last Taken Unknown] flash glucose scanning reader ([employer]Style Marj 2 [place]) #1 ea 06/11/22 [Rx Last Taken Unknown] ondansetron 4 mg disintegrating tablet 4 mg PO Q8H PRN PRN Nausea #10 tabs 11/07/22 [Rx Last Taken Unknown] insulin glargine 100 unit/mL (3 mL) subcutaneous pen (Lantus Solostar U-100 Insulin) 30 unit (0.3 mL) subcut DAILY #15 mL 03/25/23 [Rx Last Taken Unknown] insulin lispro 100 unit/mL subcutaneous pen See Rx Instructions subcut TID #15 mL 03/25/23 [Rx Last Taken Unknown] lisinopril 10 mg tablet 10 mg PO DAILY #90 tabs 03/25/23 [Rx Last Taken Unknown] pen needle, diabetic 32 gauge x 5/32 (BD Ultra-Fine Peace Pen Needle) #120 ea 03/25/23 [Rx Last Taken Unknown] flash glucose sensor (FreeStyle Marj 2 Sensor kit) #2 ea 08/02/23 [Rx Last Taken Unknown] ondansetron 4 mg disintegrating tablet 4 mg PO Q8H PRN PRN Nausea #10 tabs 08/15/23 [Rx Last Taken Unknown] Allergy/AdvReac Type Severity Reaction Status Date / Time amoxicillin Allergy Intermediate hives Verified 09/29/23 16:37 Family History Brother Heart disease Grandfather Heart disease Mother Liver disease Social History Smoking Status: Current every day smoker tobacco type: e-cigarettes Smokeless tobacco user: other Electronic Cigarette Use: without nicotine substance use type: does not use what type of physical activity do you participate in: walking frequency: daily ROS ROS ED Constitutional Constitutional ED: Denies chills, fever(s) or subjective Eyes Eyes: Denies change in vision ENT ENT ED: Denies rhinorrhea or sore throat Cardiovascular Cardiovascular: Reports chest pain; Denies palpitations or racing heartbeat Respiratory/Chest Respiratory/Chest: Denies cough or dyspnea Gastrointestinal Gastrointestinal: Reports other Details: Mild occasional bilateral flank pain ; Denies nausea or vomiting Genitourinary Genitourinary ED: Denies dysuria or hematuria Musculoskeletal Musculoskeletal: Reports other Details: Right thigh pain near injection site. Integumentary Denies abscess, Abrasions or rash Neurologic Neurologic: Denies headache(s), paresthesias or weakness Hematologic/Lymphatic Hematologic/Lymphatic: Denies easy bleeding, easy bruising or lymphadenopathy Allergic/Immunologic Allergic/Immunologic ED: Denies urticaria EXAM Physical Exam Narrative Exam Narrative: CONSTITUTIONAL: Patient is nontoxic in appearance. The patient looks comfortable. Work of breathing looks normal. HEENT: No notable trauma. Mucous membranes moist. EYES: No conjunctival injection. No proptosis. NECK:No JVD. No stridor. CARDIOVASCULAR: Regular rate. Regular rhythm. No notable murmur. No JVD. No tachycardia. Pulses are normal distally. RESPIRATORY: No respiratory distress. Breathing is unlabored. No wheezes. No rhonchi. No rales. No pain with a deep breath. No chest wall tenderness. He points really just to the xiphoid is his area of pain. There is mild tenderness there but nowhere else in the chest wall. But there is no skin changes either. GASTROINTESTINAL: Not distended. Bowel sounds are normal. No tenderness. No guarding. No rebound. No palpable mass. No bruit is heard. I press all over including the sides and epigastric area and there is no where this tender. GENITOURINARY: No tenderness over the bladder. No CVA tenderness. MUSCULOSKELETAL: There is a small red dot in the anterior lateral proximal right thigh where he injected. There is an area around it probably 6 cm to just seems full but is not at all red or warm. No sign of infection whatsoever. No fluid. This is not near his common femoral artery and nerve NEUROLOGICAL: Patient is alert and appropriate. No focal deficit noted. SKIN: No noted rashes. No diaphoresis. See above regarding right proximal lateral thigh. PSYCHIATRIC: Patient is calm. Mood is appropriate. Const Vital Signs: 09/29/23 16:37 09/29/23 17:53 Temperature 98.8 F Temperature Source Temporal Pulse Rate 77 Respiratory Rate 18 Respiratory Pattern Normal Blood Pressure 137/82 H Blood Pressure Mean 100 Pulse Ox 98 Oxygen Delivery Method Room Air MDM MDM MDM Narrative Medical decision making narrative: My independent interpretation of the patient's 4 view x-ray of the right femur shows no metallic needle or air. No acute process. Final reading is pending. My independent interpretation of the patient's PA and lateral chest x-ray shows no sign of acute process. Final reading is pending. Final reading of both images are negative per radiology. I talked with the patient. He is comfortable going home. He does bring up a new issue now. He would just like his blood sugar checked to make sure that his CGM is reading somewhat accurately. He does not feel as though it is an accurate he just wants to make sure. This BGT is pending. Radiography Diagnostic Testing: Clinical Impression(s) from Imaging Studies Femur X-Ray 09/29/23 17:03 IMPRESSION: Negative right femur x-rays. Electronically Signed: Jacky Greer MD at 17:53 EST , Chest X-Ray 09/29/23 17:35 IMPRESSION: No radiographic evidence of acute cardiopulmonary disease. Electronically Signed: Jacky Greer MD at 17:52 EST , EKG Initial EKG: Comments: My independent interpretation of the patient's EKG shows a normal sinus rhythm with slight sinus arrhythmia which is typical at his age. No ectopy. No acute ST elevation or depression. No preexcitation. CO interval, QRS duration and QTc are normal. Discharge Plan Triage Chief Complaint: Other, Pain/Inj ED Provider: Lico Deshpande Dx/Rx/DC Orders Clinical Impression: History of diabetes mellitus, type I, Pain at injection site Instructions: ED Pain, Acute, Uncertain Cause Prescriptions: No Action (DME) OneTouch Verio test strips Strip See Rx Instructions .ROUTE .MEDSUPPLY Qty: 10 Rx Instructions: As directed naproxen 250 mg tablet 250 mg PO BID PRN (Reason: Pain) (DME) blood-glucose meter [OneTouch Verio Meter] [facility] See Rx Instructions .ROUTE .MEDSUPPLY Qty: 1 0RF Rx Instructions: As directed (DME) OneTouch Verio test strips Strip See Rx Instructions .ROUTE .MEDSUPPLY Qty: 120 8RF Rx Instructions: 4x/day lisinopril 10 mg tablet 10 mg PO DAILY Qty: 90 3RF insulin glargine [Lantus Solostar U-100 Insulin] 100 unit/mL (3 mL) insulin pen 30 unit subcut DAILY Qty: 15 6RF insulin lispro 100 unit/mL insulin pen See Rx Instructions subcut TID MDD 60 Qty: 15 4RF Rx Instructions: 1 unit for 4 g carbs and 1 unit for 50 pt over 100 subcut three times a day; (DME) pen needle, diabetic [BD Ultra-Fine Peace Pen Needle] 32 gauge x 5/32 needle See Rx Instructions .ROUTE .MEDSUPPLY Qty: 120 4RF Rx Instructions: 4 times daily methylphenidate HCl [Concerta] 54 MG tablet extended release 24hr 54 mg PO DAILY ondansetron [ondansetron] 4 mg tablet,disintegrating 4 mg PO Q8H PRN PRN (Reason: Nausea) Qty: 10 0RF ondansetron 4 mg tablet,disintegrating 4 mg PO Q8H PRN PRN (Reason: Nausea) Qty: 10 0RF cholecalciferol (vitamin D3) 1,250 mcg (50,000 unit) capsule 1,250 mcg PO QWEEK Qty: 24 0RF (DME) FreeStyle Marj 2 [place] Misc See Rx Instructions .Route Qty: 1 0RF Rx Instructions: As directed (DME) FreeStyle Marj 2 Sensor Kit See Rx Instructions .ROUTE .MEDSUPPLY Qty: 2 5RF Rx Instructions: 1 sensor q 14 days Primary Care Provider: Sapphire Mardigal Referrals: Sapphire Madrigal DO [Primary Care Provider] - 3-5 Days if not improving Disposition Disposition: Home, Self Care
--- NOTE | 2023-09-29 17:35 | RAD_ITS ---
EXAM: XR CHEST, 2 VIEWS CLINICAL INDICATION: pain TECHNIQUE: Frontal and lateral views of the chest. COMPARISON: 05/23/2023 FINDINGS: LUNGS AND PLEURAL SPACES: Unremarkable. No consolidation or edema. No pneumothorax. No effusion. HEART: Unremarkable. Cardiac silhouette not enlarged. MEDIASTINUM: Central airways and mediastinal contour are unremarkable. BONES/JOINTS: Unremarkable. No acute fracture. SOFT TISSUES: Unremarkable. RAD/Chest PA and Lateral IMPRESSION: No radiographic evidence of acute cardiopulmonary disease. Electronically Signed: Jacky Greer MD at 17:52 EST ,
[2023-09-29 19:12] LABS: Bedside Glucose 91 mg/dL (74-106)
[2023-09-29 19:15] VITALS: BP 126/69; PULSE 76; RESP 18
== END 2023-09-29 19:23 | disposition home or self-care (01) ==
PROVIDERS: Emergency Provider Emergency Medicine; PCP Pediatrics; Visit Provider Emergency Medicine
DX: M79.651 Pain in right thigh (principal); E10.22 Type 1 diabetes mellitus with diabetic chronic kidney disease; N18.2 Chronic kidney disease, stage 2 (mild); F17.290 Nicotine dependence, other tobacco product, uncomplicated
CPT/HCPCS: 71046; 73552; 82962; 93005; 99282

== ENCOUNTER → 2024-06-04 | Outpatient (CLI) | payer MEDICAID, SELFPAY ==
[2024-06-04 16:12] LABS: Color, Urine Yellow (Yellow); Glucose, Dipstick 1000 mg/dl (Normal); Ketone-Dipstick Negative (Negative); Leukocyte Esterase-Dipstick Negative /ul (Negative); Nitrite-Dipstick Negative (Negative); Occult Blood-Urine 25 /ul (Negative); Protein-Dipstick 30 mg/dl (Negative); Urine Bilirubin Dipstick Negative (Negative); Urine Clarity Clear (Clear); Urine Urobilinogen Normal (Normal)
[2024-06-04 16:14] LABS: Absolute Lymphocyte Count 1.45 X10^3/uL (0.83-4.51); Absolute Neutrophil Count 2.9 X10^3/uL (2.0-7.7); Basophil# 0.03 X10^3/uL; Basophil% 0.6 % (0-1); Eosinophil# 0.16 X10^3/uL; Eosinophils% 3.1 % (0-5); Hematocrit 48.5 % (40-54); Hemoglobin 16.5 g/dL (13.0-16.5); Lymphocyte # 1.45 X10^3/ul (0.83-4.51); Lymphocyte % 28.4 % (19-41); Mean Corpuscular Hgb 28.4 pg (27.0-32.0); Mean Corpuscular Volume 83.3 fL (80-94); Mean Platelet Vol. 10.5 fl (6.2-12.0); Monocyte# 0.55 X10^3/uL; Monocyte% 10.8 % (0-10); NRBC Flagged by Analyzer 0 % (0-5); Neutrophil % 56.7 % (47-70); Platelet Count 229 K/mm3 (150-450); RBC Distribution Width CV 12.7 % (11.6-14.6); RBC Distribution Width SD 38.4 fl (35.1-43.9); Red Blood Count 5.82 M/mm3 (4.6-6.2); White Blood Count 5.1 K/mm3 (4.4-11.0)
[2024-06-04 16:34] LABS: Microalbumin,Random Urine 31.2 mg/L (NO RANGE EST.); Microalbumin:Creatinine Ratio 33.1 mg/g CRE (<30 mg/g CRE)
[2024-06-04 16:42] LABS: ALB/GLOB Ratio 1.1 RATIO (0.9-2.4); AST(SGOT) 16 U/L (15-37); Alanine Aminotransfer ALT/SGPT 19 U/L (16-61); Albumin, Serum 4.1 g/dL (3.2-5.0); Alkaline Phosphatase 113 U/L (45-117); Anion Gap 5 (5-15); BUN 11 mg/dL (7-18); BUN/Creat Ratio 10.5 RATIO (10-20); Calcium,Total 9.4 mg/dL (8.5-10.1); Chloride 99 mmol/L (98-107); Cholesterol 165 mg/dL (200); Creatinine, Serum 1.05 mg/dL (0.70-1.30); EST Glomerular Filtration Rate 94 mL/min (>60); Est Glom Filt Rate - Afr Amer 114 mL/min (>60); Globulin 3.9 g/dL (2.2-4.2); Glucose 338 mg/dL (74-106); High Density Lipoprotein 50 mg/dL; Potassium 4.6 mmol/L (3.5-5.1); Sodium Level 133 mmol/L (136-145); Triglycerides 62 mg/dL; Very Low Density Lipoprotein 12 mg/dL (5-40)
== END | disposition home or self-care (01) ==
LOC: LAB 15:51
PROVIDERS: PCP Pediatrics; Referring Provider Internal Medicine Endocrinology, Diabetes & Metabolism; Visit Provider Internal Medicine Endocrinology, Diabetes & Metabolism
DX: E10.65 Type 1 diabetes mellitus with hyperglycemia (principal); E10.22 Type 1 diabetes mellitus with diabetic chronic kidney disease; N18.2 Chronic kidney disease, stage 2 (mild); R10.9 Unspecified abdominal pain
CPT/HCPCS: 36415; 80053; 80061; 81002; 82043; 82570; 84443; 85025

== ENCOUNTER → 2024-11-12 | Outpatient (CLI) | payer MEDICAID, SELFPAY ==
[2024-11-12 14:45] LABS: Bacteria 0 SEEN /hpf (None Seen); Mucous, Urine 0 SEEN /hpf (<or=2+); White Blood Cells 0 SEEN /hpf (0-5)
[2024-11-12 14:59] LABS: Color, Urine Yellow (Yellow); Glucose, Dipstick 1000 mg/dl (Normal); Ketone-Dipstick 15 mg/dl (Negative); Leukocyte Esterase-Dipstick Negative /ul (Negative); Nitrite-Dipstick Negative (Negative); Occult Blood-Urine 10 /ul (Negative); Protein-Dipstick Negative (Negative); Urine Bilirubin Dipstick Negative (Negative); Urine Clarity Clear (Clear); Urine Urobilinogen Normal (Normal)
[2024-11-12 15:04] LABS: Red Blood Cells-Urine 0-5 SEEN /hpf (0-5)
[2024-11-12 15:05] LABS: Squamous Epithelial Cells - UA 0-5 SEEN /hpf (0-5)
== END | disposition home or self-care (01) ==
LOC: LAB 14:38
PROVIDERS: PCP Pediatrics; Referring Provider Internal Medicine Endocrinology, Diabetes & Metabolism; Visit Provider Internal Medicine Endocrinology, Diabetes & Metabolism
DX: R31.9 Hematuria, unspecified (principal)
CPT/HCPCS: 81001; 87086